=== PATIENT | female | born 1960 | race Caucasian/White ===

== ENCOUNTER → 2023-05-18 07:57 | Outpatient (REF) | payer OTHER, SELFPAY | LOC: WDC 07:57 | PROVIDERS: ATTENDING PHYSICIAN Obstetrics & Gynecology Gynecology; FAMILY PHYSICIAN Family Medicine | DX: Z12.31 Encounter for screening mammogram for malignant neoplasm of breast (principal) | CPT/HCPCS: 77063; 77067 ==

== ENCOUNTER → 2023-08-30 07:23 | Outpatient (REF) | payer OTHER, SELFPAY | LOC: WDC 07:23 | PROVIDERS: ATTENDING PHYSICIAN Obstetrics & Gynecology Gynecology; FAMILY PHYSICIAN Family Medicine | DX: R92.2 Inconclusive mammogram (principal) | CPT/HCPCS: 76641 ==

== ENCOUNTER → 2023-12-28 08:17 | Outpatient (REF) | payer OTHER, SELFPAY | LOC: RAD 08:17 | PROVIDERS: ATTENDING PHYSICIAN Obstetrics & Gynecology Gynecology; FAMILY PHYSICIAN Family Medicine | DX: M81.0 Age-related osteoporosis without current pathological fracture (principal) | CPT/HCPCS: 77080 ==

== ENCOUNTER → 2024-05-20 06:50 | Outpatient (REF) | payer OTHER, SELFPAY | LOC: WDC 06:50 | PROVIDERS: ATTENDING PHYSICIAN Obstetrics & Gynecology Gynecology; FAMILY PHYSICIAN Family Medicine | DX: Z12.31 Encounter for screening mammogram for malignant neoplasm of breast (principal) | CPT/HCPCS: 77063; 77067 ==

== ENCOUNTER → 2024-07-25 08:46 | Outpatient (REF) | payer MEDICARE, SELFPAY | LOC: RAD 08:46 | PROVIDERS: ATTENDING PHYSICIAN Obstetrics & Gynecology Gynecology; FAMILY PHYSICIAN Family Medicine | DX: Z12.73 Encounter for screening for malignant neoplasm of ovary (principal); Z80.41 Family history of malignant neoplasm of ovary | CPT/HCPCS: 76830; 76856 ==

== ENCOUNTER → 2024-09-24 07:21 | Outpatient (REF) | payer MEDICARE, SELFPAY | LOC: WDC 07:21 | PROVIDERS: ATTENDING PHYSICIAN Obstetrics & Gynecology Gynecology; FAMILY PHYSICIAN Family Medicine | DX: R92.2 Inconclusive mammogram (principal); Z80.3 Family history of malignant neoplasm of breast | CPT/HCPCS: 76641 ==